=== PATIENT | male | born 1960 | race Caucasian/White ===

== ENCOUNTER 2021-03-16 07:10 | Inpatient (IN) | payer OTHER, SELFPAY ==
[2021-03-16] VITALS (13 sets, daily range): BP systolic 105–147; BP diastolic 58–76; PULSE 96–140; RESP 18–22; TEMP 36.5–39.6; O2SAT 90–97; BMI 30.2
--- NOTE | ~2021-03-16 | CT_ITS ---
EXAMINATION: CT CHEST WITHOUT CONTRAST CLINICAL INFORMATION: Follow-up pneumonia COMPARISON: Previous chest x-ray from yesterday TECHNIQUE: Multidetector volumetric CT imaging of the chest was done. Axial MIP volume rendering provided. Sagittal and coronal reformatted images were obtained. This CT examination was performed using dose optimization techniques as appropriate, variously including the following: *Automated exposure control *Adjustment of mA and/or kV according to patient size (this includes techniques or standardized protocols for targeted exams where dose is matched to indication/reason for exam; i.e. extremities or head) *Use of iterative reconstruction technique DLP: 312 mGy-cm FINDINGS: QUAHOGGER: LUNGS: There is right-sided multilobar peribronchial groundglass attenuation, bronchial wall thickening, and small nodular opacities. Largest nodular opacity measures 5 mm in the right lower lobe axial image 40 series 4. There is mild interlobular septal thickening seen particularly in the right lower lobe. Chest CT appearance is suggestive of bronchopneumonia. This may be improved compared to yesterday's chest x-ray. There is a small 3 mm left upper lobe nodule axial image 190 series 5. There are small clustered peribronchial nodules in the lingula for example axial image 262 series 5 and in the left lower lobe for example axial image 385 series 5 probably representing airways disease. There is a 2 mm calcified left lower lobe nodule axial image 328 series 5. No endobronchial or endotracheal lesion is seen. MEDIASTINUM: The mediastinum is normal. PLEURA: There is no pleural effusion. No pleural mass or thickening. AXILLA: There is shotty axillary lymphadenopathy. UPPER ABDOMEN: There is a small posterior gastric diverticulum. The gallbladder has been removed. OSSEOUS STRUCTURES: There are degenerative changes of the spine. CT/CT chest wo con IMPRESSION: Multilobar right-sided pneumonia. This may be improved compared to yesterday's chest x-ray.
--- NOTE | ~2021-03-16 | XR_ITS ---
EXAMINATION: XR CHEST CLINICAL INFORMATION: Right-sided pneumonia COMPARISON: None TECHNIQUE: 2 views of the chest were obtained. FINDINGS: There are scattered airspace opacities throughout the right hemithorax, greatest involvement anterior upper lobe and right middle lobe. There is no associated effusion. The left lung is clear. The vascularity is normal. Heart is within limits of normal size. The hilar and mediastinal contours and bony structures are unremarkable. XR/XR chest 2V IMPRESSION: Multifocal pneumonia and right with involvement greatest anterior upper lobe and right middle lobe. No effusion. Left lung clear.
[2021-03-16] MEDS: Acetaminophen 325 MG TABLET 650 MG PO ×2 (07:47→19:58)
--- NOTE | 2021-03-16 07:50 | PC.NURSE ---
PT ALERT AND ORIENTED, SKIN FLUSHED AND WARM TO TOUCH, RESPIRATIONS EVEN AND UNLABORED, LS DIMINISHED AND RIGHT LOWER COURSE, DRY COUGH, SINUS TACH ON THE MONITOR AT 120'S.
--- NOTE | 2021-03-16 07:55 | ED_ITS ---
HPI - Fever General Chief Complaint: Fever Stated Complaint: SOB,FEVER Time Seen by Provider: 03/16/21 07:54 Source: patient Mode of arrival: EMS Limitations: no limitations History of Present Illness HPI Narrative: patient woke up short of breath and too weak. patient has been vaccinated for COVID. patient did not know he had fever MD elicited complaint: fever and weakness Onset (ago): hour(s) Exacerbating factors: nothing Relieving factors: nothing Associated symptoms: chills and headache Related Data Home Medications Medication Instructions Recorded Confirmed amitriptyline 25 mg tablet 25 mg PO BEDTIME 03/16/21 03/16/21 doxepin 100 mg capsule 200 mg PO BEDTIME 03/16/21 03/16/21 doxepin 50 mg capsule 50 mg PO BEDTIME 03/16/21 03/16/21 hyoscyamine sulfate 0.125 mg 1 tab SUBLINGUAL DAILY PRN 03/16/21 03/16/21 sublingual tablet levothyroxine 75 mcg tablet 75 mcg PO QAM 03/16/21 03/16/21 morphine 15 mg tablet,extended 15 mg PO TID 03/16/21 03/16/21 release omeprazole 20 mg capsule,delayed 20 mg PO BID 03/16/21 03/16/21 release oxycodone-acetaminophen 5 mg-325 1 tab PO BID 03/16/21 03/16/21 mg tablet prazosin 1 mg capsule 3 cap PO BEDTIME 03/16/21 03/16/21 pregabalin 150 mg capsule 300 mg PO BEDTIME 03/16/21 03/16/21 sumatriptan succinate 50 mg tablet 1 tab PO Q2H PRN 03/16/21 03/16/21 Allergies Allergy/AdvReac Type Severity Reaction Status Date / Time celecoxib [From Celebrex] Allergy Headache Verified 03/16/21 07:27 sulfamethoxazole Allergy Headache Verified 03/16/21 07:27 [From Bactrim] trimethoprim [From Bactrim] Allergy Headache Verified 03/16/21 07:27 Review of Systems Constitutional: Constitutional: Reports no additional constitutional complaints Eyes: Eyes: Reports no additional eye complaints ENT: Denies dizziness Cardiovascular: Cardiovascular: Reports no additional cardiovascular complaints Respiratory: Respiratory: Reports as per HPI Gastrointestinal: Gastrointestinal: Reports no additional gastrointestinal complaints Musculoskeletal: Musculoskeletal: Reports no additional musculoskeletal complaints Integumentary/Breasts: Skin/Breast: Denies rash Neurologic: Reports system reviewed and no additional complaints, except as documented, Denies dizziness and Denies Sensory deficit (Neuro) Psychiatric: Psychiatric: Denies anxiety PMF Past Medical History Medical History Back pain Social History Social History Alcohol intake: former Patient Tobacco Use Status: Former Tobacco user Use of substances other than those prescribed or required for medical reasons: No Advance Directives: Yes Advance Directives Information Provided: Yes Advance Directives on File: No Physical Exam Vital Signs: Vital Signs: Last Vital Signs Temp 100.0 F 03/16/21 09:43 Pulse 107 H 03/16/21 10:42 Resp 21 H 03/16/21 10:42 BP 109/63 03/16/21 11:02 Pulse Ox 95 03/16/21 10:42 Body Mass Index 30.2 Const: Other: coughing slightly short of breath Nutritional Appearance: average body habitus Orientation/consciousness: oriented to person and patient oriented x3 Limitations: no limitations HENMT: Head: Yes normal to inspection Ears: external ears normal General nose exam: Normal external nose present Mouth: Normal oral and palatal mucosa present and oropharynx normal Throat: Yes posterior oropharynx normal Eyes: General: appearance normal, both eyes and all related structures Neck: Other: supple Neck: Yes normal visual inspection Chest: Chest palpation & inspection: normal inspection of the chest Resp: Other: Rales on the right Cardio: Other: tachycardia Jugular venous distension: no JVD Rate: regular rate Rhythm: regular rhythm Heart sounds: S1 normal heart sound present and S2 normal heart sound present GI: Inspection: Yes normal to inspection Palpation (GI): Soft to palpation, nontender and No hepatosplenomegaly present Auscultation: normal bowel sounds : General: Yes no CVA tenderness Back/Spine/Pelvis: Back: no CVA tenderness Skin: General skin exam: no rashes or lesions noted Neuro: General: oriented to person and patient oriented x3 Cranial nerves: Yes CN's II-XII intact bilaterally Motor exam (neuro): 5/5 motor strength present throughout Sensory Exam: No Sensory deficit (Neuro) Extrem: General: Yes normal to inspection Psych: Appearance: grossly normal Course Reevaluation(s) Reevaluation #1: patient with fever to 104, tachycardia and multilobar pneumonia on right will admit Time: 10:02 MDM - Fever Lab Data Result diagrams: 03/16/21 07:59 03/16/21 07:59 Labs: Lab Results 03/16/21 03/16/21 03/16/21 Range/Units 07:59 07:59 07:59 WBC 6.8 (4.8-10.8) X10*3/uL RBC 4.53 L (4.60-5.80) X10*6/uL Hgb 13.6 L (14.0-18.0) g/dl Hct 39.9 L (42-52) % MCV 88.1 (80-98) fL MCH 30.0 (27.0-33.0) pg MCHC 34.1 (31.0-36.0) g/dl RDW 12.9 (11.0-16.0) % Plt Count 184 (160-400) X10*3/uL MPV 9.1 L (9.4-12.4) fL Immature Gran % (Auto) 0.4 (0.0-0.4) % Neut % (Auto) 87.3 H (45-73) % Lymph % (Auto) 7.2 L (20-40) % [place] % (Auto) 3.5 (2-11) % Eos % (Auto) 1.3 (0-4) % Baso % (Auto) 0.3 (0-2) % Lymph # (Auto) 0.5 L (1.2-4.9) X10*3/uL [place] # (Auto) 0.2 (0.1-1.2) X10*3/uL Eos # (Auto) 0.1 (0.0-0.4) X10*3/uL Baso # (Auto) 0.0 (0.0-0.2) X10*3/uL Abs Immat Gran (auto) 0.03 (0.00-0.03) X10*3/uL Absolute Neuts (auto) 5.9 (2.0-8.3) X10*3/uL Absolute Nucleated RBC 0.000 (0.0-0.012) X10*3/uL Nucleated RBC % (auto) 0.0 (0.0-0.2) /100WBC PT 11.0 (9.9-13.0) SEC INR 1.0 (0.9-1.1) APTT 27.9 (24.1-38.0) SEC Sodium 139 (135-145) mmol/L Potassium 3.9 (3.3-5.1) mmol/L Chloride 109 H (96-108) mmol/L Carbon Dioxide 21 L (22-29) mmol/L Anion Gap 13 (12-20) BUN 11 (9-16) mg/dL Creatinine 1.20 (0.5-1.4) mg/dL Estim Creat Clear Calc 75.5 Estimated GFR > 60 Random Glucose 120 H (60-115) mg/dL Lactic Acid (0.5-2.0) mmol/L Calcium 7.8 L (8.4-10.2) mg/dL Total Bilirubin 1.2 H (0.0-1.0) mg/dL Direct Bilirubin 0.4 (0.0-0.5) mg/dL AST 36 (5-37) U/L ALT 33 (0-40) U/L Alkaline Phosphatase 70 (39-117) U/L Total Protein 6.0 L (6.5-8.0) g/dL Albumin 3.7 (3.5-5.0) g/dL Coronavirus (PCR) (Negative) Influenza Type A (PCR) (Negative) Influenza Type B (PCR) (Negative) RSV RNA Qual (PCR) (Negative) 03/16/21 03/16/21 Range/Units 08:00 08:09 WBC (4.8-10.8) X10*3/uL RBC (4.60-5.80) X10*6/uL Hgb (14.0-18.0) g/dl Hct (42-52) % MCV (80-98) fL MCH (27.0-33.0) pg MCHC (31.0-36.0) g/dl RDW (11.0-16.0) % Plt Count (160-400) X10*3/uL MPV (9.4-12.4) fL Immature Gran % (Auto) (0.0-0.4) % Neut % (Auto) (45-73) % Lymph % (Auto) (20-40) % [place] % (Auto) (2-11) % Eos % (Auto) (0-4) % Baso % (Auto) (0-2) % Lymph # (Auto) (1.2-4.9) X10*3/uL [place] # (Auto) (0.1-1.2) X10*3/uL Eos # (Auto) (0.0-0.4) X10*3/uL Baso # (Auto) (0.0-0.2) X10*3/uL Abs Immat Gran (auto) (0.00-0.03) X10*3/uL Absolute Neuts (auto) (2.0-8.3) X10*3/uL Absolute Nucleated RBC (0.0-0.012) X10*3/uL Nucleated RBC % (auto) (0.0-0.2) /100WBC PT (9.9-13.0) SEC INR (0.9-1.1) APTT (24.1-38.0) SEC Sodium (135-145) mmol/L Potassium (3.3-5.1) mmol/L Chloride (96-108) mmol/L Carbon Dioxide (22-29) mmol/L Anion Gap (12-20) BUN (9-16) mg/dL Creatinine (0.5-1.4) mg/dL Estim Creat Clear Calc Estimated GFR Random Glucose (60-115) mg/dL Lactic Acid 2.1 H* (0.5-2.0) mmol/L Calcium (8.4-10.2) mg/dL Total Bilirubin (0.0-1.0) mg/dL Direct Bilirubin (0.0-0.5) mg/dL AST (5-37) U/L ALT (0-40) U/L Alkaline Phosphatase (39-117) U/L Total Protein (6.5-8.0) g/dL Albumin (3.5-5.0) g/dL Coronavirus (PCR) NEGATIVE (Negative) Influenza Type A (PCR) NEGATIVE (Negative) Influenza Type B (PCR) NEGATIVE (Negative) RSV RNA Qual (PCR) NEGATIVE (Negative) Imaging Data Chest x-ray: Radiologist's impression: IMPRESSION: Multifocal pneumonia and right with involvement greatest anterior upper lobe and right middle lobe. No effusion. Left lung clear. Discharge Plan Discharge Clinical Impression: Pneumonia Qualifiers: Pneumonia type: due to unspecified organism Laterality: right Lung location: unspecified part of lung Qualified Code(s): J18.9 - Pneumonia, unspecified organism Patient Disposition: Admitted As Inpatient
[2021-03-16 08:05] LABS: MANUAL DIFF FLAG NO
[2021-03-16 08:06] LABS: Basophils Percent Auto 0.3 % (0-2); Eosinophils Absolute Auto 0.1 X10*3/uL (0.0-0.4); Eosinophils Percent Auto 1.3 % (0-4); Hematocrit 39.9 % (42-52); Hemoglobin 13.6 g/dl (14.0-18.0); Imm Gran Abs Auto 0.03 X10*3/uL (0.00-0.03); Imm Gran Pct Auto 0.4 % (0.0-0.4); Lymphocytes Absolute Auto 0.5 X10*3/uL (1.2-4.9); Lymphocytes Percent Auto 7.2 % (20-40); Mean Corpuscular HGB Conc 34.1 g/dl (31.0-36.0); Mean Corpuscular Volume 88.1 fL (80-98); Mean Platelet Volume 9.1 fL (9.4-12.4); Monocytes Absolute Auto 0.2 X10*3/uL (0.1-1.2); Monocytes Percent Auto 3.5 % (2-11); Neutrophils Absolute Auto 5.9 X10*3/uL (2.0-8.3); Neutrophils Percent Auto 87.3 % (45-73); Platelet Count 184 X10*3/uL (160-400); Red Blood Count 4.53 X10*6/uL (4.60-5.80); Red Cell Distribution Width 12.9 % (11.0-16.0); White Blood Count 6.8 X10*3/uL (4.8-10.8)
[2021-03-16 08:14] LABS: Partial Thromboplastin Time 27.9 SEC (24.1-38.0)
[2021-03-16 08:31] LABS: Alanine Aminotransferase 33 U/L (0-40); Albumin Level 3.7 g/dL (3.5-5.0); Alkaline Phosphatase 70 U/L (39-117); Anion Gap 13 (12-20); Aspartate Amino Transferase 36 U/L (5-37); Bilirubin Direct 0.4 mg/dL (0.0-0.5); Bilirubin Total 1.2 mg/dL (0.0-1.0); Blood Urea Nitrogen 11 mg/dL (9-16); Calcium 7.8 mg/dL (8.4-10.2); Carbon Dioxide 21 mmol/L (22-29); Chloride 109 mmol/L (96-108); Creatinine Clr Calc Pharmacy 75.5; Estimated Glomerular Filt Rate > 60; Glucose Random 120 mg/dL (60-115); Potassium 3.9 mmol/L (3.3-5.1); Sodium 139 mmol/L (135-145)
[2021-03-16 08:40] LABS: Lactic Acid 2.1 mmol/L (0.5-2.0)
[2021-03-16 08:55] LABS: Influenza A PCR NEGATIVE (Negative); Influenza B PCR NEGATIVE (Negative); Resp Syncy Virus RNA Qual PCR NEGATIVE (Negative); SARS COV2 PCR INHOUSE NEGATIVE (Negative)
--- NOTE | 2021-03-16 09:46 | PC.NURSE ---
VS remain stable. Temp trending down. Sepsis IVF remain infusing at this time.
[2021-03-16 10:04] LABS: Reflex Lactate? Lactic Acid Added
[2021-03-16] MEDS: cefTRIAXone sodium 1 GM in 0.9 % Sodium Chloride 50 ML IV (10:25)
[2021-03-16] MEDS: Azithromycin 500 MG in 0.9 % Sodium Chloride 250 ML 125 MG IV (11:00)
[2021-03-16 11:15] LABS: ~Lactic Acid-LAB USE ONLY 2.1 mmol/L (0.5-2.0)
[2021-03-16 12:48] LABS: Reflex Lactate? 2 Y
[2021-03-16 14:08] LABS: ~Lactic Acid-LAB USE ONLY 1.9 mmol/L (0.5-2.0)
--- NOTE | 2021-03-16 14:36 | P.HPHOSP_ITS ---
History of Present Illness Date of Service: 03/16/21 Chief Complaint: Cough, chills This is a 60-year-old male with a past medical history of chronic pain - back and multiple joints, hypothyroidism who presented to the hospital with complaints of sudden onset shortness of breath, chills, coughing when he woke up this morning. Patients is bedside, who reports that the patient had severe rigors and was intermittently confused during these spells. The patient endorses that he went to sleep fine and has felt in his usual state of health the last few days. He denies any known sick contacts. He reports that he has been vaccinated for COVID 19. Upon arrival to the ED, patient was noted to have the following vitals: BP 105/69, RR 22, HR 134, Temp 103.2. His CBC did not show an elevated WBC count, but there was a L shift. CXR showed Right sided multifocal pneumonia. He had blood cultures drawn, was given sepsis fluid bolus and admission was requested. Review of Systems Review of Systems: General - fevers and chills HEENT -denies blurred vision, denies headache, denies sore throat Cardiovascular - denies chest pain or palpitations, denies edema Respiratory - shortness of breath, cough Gastrointestinal - denies abdominal pain, nausea, vomiting, diarrhea - denies flank pain, denies dysuria, denies frequency or urgency Musculoskeletal - denies back pain, denies hip pain, denies knee pain, denies shoulder pain Neurological - denies any focal weakness or numbness Skin, denies any bruising or redness Psychiatric - denies any suicidal ideation, hallucinations, homicidal ideation Endocrinology - denies intolerance to hot / cold temperatures [facility] Medical History (Updated 03/16/21 @ 14:59 by Stiven Grissom MD) Arthritis Back pain GERD (gastroesophageal reflux disease) Hypothyroidism Migraine Pertinent family history: CAD Surgical History (Updated 03/16/21 @ 14:57 by Stiven Grissom MD) History of cholecystectomy Social History Alcohol intake: former Patient Tobacco Use Status: Former Tobacco user Use of substances other than those prescribed or required for medical reasons: No Advance Directives: Yes Advance Directives Information Provided: Yes Advance Directives on File: No Meds Allergies Allergy/AdvReac Type Severity Reaction Status Date / Time celecoxib [From Celebrex] Allergy Headache Verified 03/16/21 07:27 sulfamethoxazole Allergy Headache Verified 03/16/21 07:27 [From Bactrim] trimethoprim [From Bactrim] Allergy Headache Verified 03/16/21 07:27 Active Medications: Current Medications Generic Name Dose Route Start Last Admin Trade Name Freq PRN Reason Stop Dose Admin Acetaminophen 650 mg 03/16/21 14:23 Acetaminophen 325 Mg Tablet PO Q6H PRN Fever Enoxaparin Sodium 40 mg 03/16/21 14:30 Enoxaparin Sodium 40 Mg/0.4 Ml Syringe SUBCUT Q24H [facility] Ceftriaxone Sodium 1 gm/ 50 mls @ 100 mls/hr 03/17/21 10:00 Sodium Chloride IV Q24H KEVIN Azithromycin 500 mg/ Sodium 250 mls @ 125 mls/hr 03/17/21 10:00 Chloride IV Q24H KEVIN Morphine Sulfate 4 mg 03/16/21 14:28 Morphine Sulfate 4 Mg/Ml Cartridge IVPUSH Q4H PRN Pain, Severe (Pain Scale 7-10) Pharmacy Consult 1 each 03/16/21 10:14 Consult Rx Perform Med Rec MISCELLANE ONCE PRN Consult order Sodium Chloride 3 ml 03/16/21 16:00 0.9 % Sodium Chloride Flush 3 Ml [facility] Home Medications Medication Instructions Recorded Confirmed Last Taken Type amitriptyline 25 mg tablet 25 mg PO BEDTIME 03/16/21 03/16/21 03/15/21 History doxepin 100 mg capsule 200 mg PO BEDTIME 03/16/21 03/16/21 03/15/21 History doxepin 50 mg capsule 50 mg PO BEDTIME 03/16/21 03/16/21 03/15/21 History hyoscyamine sulfate 0.125 mg 1 tab SUBLINGUAL DAILY PRN 03/16/21 03/16/21 Unknown History sublingual tablet levothyroxine 75 mcg tablet 75 mcg PO QAM 03/16/21 03/16/21 03/15/21 History morphine 15 mg tablet,extended 15 mg PO TID 03/16/21 03/16/21 03/15/21 History release omeprazole 20 mg capsule,delayed 20 mg PO BID 03/16/21 03/16/21 03/15/21 History release oxycodone-acetaminophen 5 mg-325 1 tab PO BID 03/16/21 03/16/21 03/15/21 History mg tablet prazosin 1 mg capsule 3 cap PO BEDTIME 03/16/21 03/16/21 03/15/21 History pregabalin 150 mg capsule 300 mg PO BEDTIME 03/16/21 03/16/21 03/15/21 History sumatriptan succinate 50 mg tablet 1 tab PO Q2H PRN 03/16/21 03/16/21 Unknown History Physical Exam Vital Signs and Narrative: Vital Signs: Last Vital Signs Temp 99.4 F 03/16/21 13:32 Pulse 105 H 03/16/21 13:32 Resp 22 H 03/16/21 13:32 BP 115/73 03/16/21 13:32 Pulse Ox 97 03/16/21 13:32 Body Mass Index 30.2 Results Labs CBC and Chem 7: 03/16/21 07:59 03/16/21 07:59 Labs: Laboratory Results - last 24 hr 03/16/21 03/16/21 03/16/21 07:59 07:59 07:59 MCV 88.1 MCH 30.0 MCHC 34.1 RDW 12.9 Plt Count 184 MPV 9.1 L Immature Gran % (Auto) 0.4 Neut % (Auto) 87.3 H Lymph % (Auto) 7.2 L [place] % (Auto) 3.5 Eos % (Auto) 1.3 Baso % (Auto) 0.3 Lymph # (Auto) 0.5 L [place] # (Auto) 0.2 Eos # (Auto) 0.1 Baso # (Auto) 0.0 Abs Immat Gran (auto) 0.03 Absolute Neuts (auto) 5.9 Absolute Nucleated RBC 0.000 Nucleated RBC % (auto) 0.0 PT 11.0 INR 1.0 APTT 27.9 Anion Gap 13 Estim Creat Clear Calc 75.5 Estimated GFR > 60 Random Glucose 120 H Lactic Acid Lactic Acid Fup @ 2Hr Lactic Acid Fup @ 4Hr Calcium 7.8 L Total Bilirubin 1.2 H Direct Bilirubin 0.4 AST 36 ALT 33 Alkaline Phosphatase 70 Total Protein 6.0 L Albumin 3.7 Coronavirus (PCR) Influenza Type A (PCR) Influenza Type B (PCR) RSV RNA Qual (PCR) 03/16/21 03/16/21 03/16/21 08:00 08:09 10:46 MCV MCH MCHC RDW Plt Count MPV Immature Gran % (Auto) Neut % (Auto) Lymph % (Auto) [place] % (Auto) Eos % (Auto) Baso % (Auto) Lymph # (Auto) [place] # (Auto) Eos # (Auto) Baso # (Auto) Abs Immat Gran (auto) Absolute Neuts (auto) Absolute Nucleated RBC Nucleated RBC % (auto) PT INR APTT Anion Gap Estim Creat Clear Calc Estimated GFR Random Glucose Lactic Acid 2.1 H* Lactic Acid Fup @ 2Hr 2.1 H* Lactic Acid Fup @ 4Hr Calcium Total Bilirubin Direct Bilirubin AST ALT Alkaline Phosphatase Total Protein Albumin Coronavirus (PCR) NEGATIVE Influenza Type A (PCR) NEGATIVE Influenza Type B (PCR) NEGATIVE RSV RNA Qual (PCR) NEGATIVE 03/16/21 13:36 MCV MCH MCHC RDW Plt Count MPV Immature Gran % (Auto) Neut % (Auto) Lymph % (Auto) [place] % (Auto) Eos % (Auto) Baso % (Auto) Lymph # (Auto) [place] # (Auto) Eos # (Auto) Baso # (Auto) Abs Immat Gran (auto) Absolute Neuts (auto) Absolute Nucleated RBC Nucleated RBC % (auto) PT INR APTT Anion Gap Estim Creat Clear Calc Estimated GFR Random Glucose Lactic Acid Lactic Acid Fup @ 2Hr Lactic Acid Fup @ 4Hr 1.9 Calcium Total Bilirubin Direct Bilirubin AST ALT Alkaline Phosphatase Total Protein Albumin Coronavirus (PCR) Influenza Type A (PCR) Influenza Type B (PCR) RSV RNA Qual (PCR) Imaging Radiologist's Impressions: Impressions Chest X-Ray 03/16/21 08:01 IMPRESSION: Multifocal pneumonia and right with involvement greatest anterior upper lobe and right middle lobe. No effusion. Left lung clear. Assessment and Plan (1) Pneumonia: Qualifiers: Laterality: right Lung location: unspecified part of lung Pneumonia type: due to unspecified organism Qualified Code(s): J18.9 - Pneumonia, unspecified organism Status: Acute This is a 60 yo M with a PMH of chronic pain, hypothyroidism, GERD who presents to the hospital with sudden onset SOB, cough, fevers and chills. His CXR shows multifocal pneumonia on the R-side. He is admitted for further work up. 1. Severe sepsis Meets sepsis criteria with tachycardia, tachypnea and fevers; severe features in clude elevated lactate. Due to pneumonia 2. Pneumonia suspected aspiration given sudden onset of symptoms will cover with IV rocephin / zithromax will check for atypicals COVID 19 less likely as PCR negative and also he has been vaccinated 3. Migranes sumatriptan now 4. Chronic Pain continue his baseline meds 5. GERD PPI 6. Hypothyroidism synthroid Full Code DVT pptx, Lovenox Quality Stroke Does the patient have a stroke diagnosis?: No VTE Prior VTE?: No VTE Risk Level:: Medical - moderate - high VTE Device Contraindication: Treatment Not Indicated VTE Drug Contraindication: N/A - Med Ordered
[2021-03-16] MEDS: Morphine Sulfate 4 MG/ML CARTRIDGE IVPUSH (14:50)
--- NOTE | 2021-03-16 14:53 | PC.NURSE ---
Addendum entered by Polly Wagner RN 03/16/21 14:57: Pt nauseated from morphine. MD notified. No prn options for nausea at this time. Original Note: Pt reporting back pain which is chronic as well as a headache. Given 4mg IV morphine.
[2021-03-16 15:20] LABS: Procalcitonin 1.65 ng/mL
[2021-03-16] MEDS: SUMAtriptan succinate 50 MG TABLET PO (15:32)
--- NOTE | 2021-03-16 16:21 | MHC.CM.PN ---
CM met with admitted pt. and . Bed assignment pending. Pt lives with , uses no DME and has no services. Pt states he has insurance through his . does will bring in pt insurance card. 's insurance card does not list pt as beneficiary. Pt requests a HCP to be completed. HCP reviewed, completed and signed. HCP/ Landy Fletcher ([phone]). D/C plan is home without services. Transportation provided by family. CM to follow for d/c needs.
[2021-03-16] MEDS: Levothyroxine Sodium 75 MCG TABLET PO (17:15)
[2021-03-16] MEDS: 0.9 % Sodium Chloride Flush 3 ML SYRINGE IVFLUSH ×2 (17:17→19:59)
[2021-03-16] MEDS: Omeprazole 20 MG CAPSULE.DR PO (17:43)
[2021-03-16] MEDS: Enoxaparin Sodium 40 MG/0.4 ML SYRINGE SUBCUT (17:44)
[2021-03-16] MEDS: Morphine Sulfate ER 15 MG TABLET.ER PO (19:58)
[2021-03-16] MEDS: Prazosin HCL 1 MG CAPSULE 3 MG PO (19:58)
[2021-03-16] MEDS: Amitriptyline HCl 25 MG TABLET PO (19:58)
[2021-03-16] MEDS: Doxepin HCl 25 MG CAPSULE 50 MG PO (19:59)
[2021-03-16] MEDS: Doxepin HCl 25 MG CAPSULE 200 MG PO (19:59)
[2021-03-16] MEDS: Pregabalin 150 MG CAPSULE 300 MG PO (19:59)
[2021-03-17 03:40] VITALS: BP 130/70; PULSE 94; RESP 18; TEMP 36.2; O2SAT 96
[2021-03-17] MEDS: Levothyroxine Sodium 75 MCG TABLET PO (06:02)
[2021-03-17] MEDS: Omeprazole 20 MG CAPSULE.DR PO ×2 (06:02→17:24)
[2021-03-17 06:55] LABS: Hematocrit 37.6 % (42-52); Hemoglobin 12.3 g/dl (14.0-18.0); Mean Corpuscular HGB Conc 32.7 g/dl (31.0-36.0); Mean Corpuscular Hemoglobin 29.6 pg (27.0-33.0); Mean Corpuscular Volume 90.6 fL (80-98); Mean Platelet Volume 9.8 fL (9.4-12.4); Platelet Count 184 X10*3/uL (160-400); Red Blood Count 4.15 X10*6/uL (4.60-5.80); Red Cell Distribution Width 13.2 % (11.0-16.0); White Blood Count 16.4 X10*3/uL (4.8-10.8)
[2021-03-17 07:03] VITALS: BP 136/71; PULSE 93; RESP 20; TEMP 36.1; O2SAT 98
[2021-03-17 07:29] LABS: Anion Gap 10 (12-20); Blood Urea Nitrogen 10 mg/dL (9-16); Calcium 7.6 mg/dL (8.4-10.2); Carbon Dioxide 24 mmol/L (22-29); Chloride 110 mmol/L (96-108); Creatinine Clr Calc Pharmacy 87.1; Estimated Glomerular Filt Rate > 60; Glucose Random 85 mg/dL (60-115); Potassium 4.1 mmol/L (3.3-5.1); Sodium 140 mmol/L (135-145)
[2021-03-17] MEDS: 0.9 % Sodium Chloride Flush 3 ML SYRINGE IVFLUSH ×3 (08:41→21:51)
[2021-03-17] MEDS: Morphine Sulfate ER 15 MG TABLET.ER PO ×3 (08:41→21:50)
[2021-03-17 09:45] LABS: Alanine Aminotransferase 30 U/L (0-40); Albumin Level 3.3 g/dL (3.5-5.0); Alkaline Phosphatase 63 U/L (39-117); Aspartate Amino Transferase 35 U/L (5-37); Bilirubin Direct 0.4 mg/dL (0.0-0.5); Bilirubin Total 2.6 mg/dL (0.0-1.0); Total Protein 5.4 g/dL (6.5-8.0)
[2021-03-17 10:07] LABS: Procalcitonin 9.68 ng/mL
--- NOTE | 2021-03-17 10:26 | HO.PM.IMPN ---
Subjective Subjective Date of Service: 03/17/21 Interval History: seen and examined d/w re: dysphagia, denies any dysphgia, reports some intermittent GERD symptoms reports feeling tired today breathing a bit easier no fevers or chills Review of Systems General - no fevers or chills Cardiovascular - no chest pain Respiratory -+CONNELL Abdominal- no abdominal pain, nausea, vomiting, diarrhea Physical Exam Vital Signs: Vital Signs: Last Vital Signs Temp 97 F 03/17/21 07:03 Pulse 93 03/17/21 07:03 Resp 20 03/17/21 07:03 BP 136/71 03/17/21 07:03 Pulse Ox 98 03/17/21 07:03 Body Mass Index 30.2 Const: Other: General - no acute distress, appears comfortable Cardiovascular - regular rate and rhythm, S1-S2 Lungs - dim sounds on the right Abdomen - soft, nontender, no rebound or guarding Extremities - no edema bilaterally Neuro - awake and alert, no focal deficits Objective Data Current Medications Generic Name Dose Route Start Last Admin Trade Name Vikasq PRN Reason Stop Dose Admin Acetaminophen 650 mg 03/16/21 14:23 03/16/21 19:58 Acetaminophen 325 Mg Tablet PO 650 mg Q6H PRN Administration Fever Amitriptyline HCl 25 mg 03/16/21 21:00 03/16/21 19:58 Amitriptyline Hcl 25 Mg Tablet PO 25 mg BEDTIME KEVIN Administration Doxepin HCl 50 mg 03/16/21 21:00 03/16/21 19:59 Doxepin Hcl 25 Mg Capsule PO 50 mg BEDTIME KEVIN Administration Doxepin HCl 200 mg 03/16/21 21:00 03/16/21 19:59 Doxepin Hcl 25 Mg Capsule PO 200 mg BEDTIME KEVIN Administration Enoxaparin Sodium 40 mg 03/16/21 18:00 03/16/21 17:44 Enoxaparin Sodium 40 Mg/0.4 Ml Syringe SUBCUT 40 mg Q24H KEVIN Administration Ceftriaxone Sodium 1 gm/ 50 mls @ 100 mls/hr 03/17/21 10:00 Sodium Chloride IV Q24H KEVIN Azithromycin 500 mg/ Sodium 250 mls @ 125 mls/hr 03/17/21 11:00 Chloride IV Q24H KEVIN Levothyroxine Sodium 75 mcg 03/16/21 14:45 03/17/21 06:02 Levothyroxine Sodium 75 Mcg Tablet PO 75 mcg DAILY@0630 KEVIN Administration Morphine Sulfate 4 mg 03/16/21 14:28 03/16/21 14:50 Morphine Sulfate 4 Mg/Ml Cartridge IVPUSH 4 mg Q4H PRN Administration Pain, Severe (Pain Scale 7-10) Morphine Sulfate 15 mg 03/16/21 15:00 03/17/21 08:41 Morphine Sulfate Er 15 Mg Tablet.Er PO 15 mg TID KEVIN Administration Omeprazole 20 mg 03/16/21 16:30 03/17/21 06:02 Omeprazole 20 Mg Capsule.Dr PO 20 mg BID@0630,1630 KEVIN Administration Ondansetron HCl 4 mg 03/16/21 14:58 03/16/21 15:13 Ondansetron Hcl 4 Mg/2 Ml Vial IVPUSH 4 mg Q8H PRN Administration Nausea and Vomiting Pharmacy Consult 1 each 03/16/21 10:14 Consult Rx Perform Med Rec MISCELLANE ONCE PRN Consult order Prazosin HCl 3 mg 03/16/21 21:00 03/16/21 19:58 Prazosin Hcl 1 Mg Capsule PO 3 mg BEDTIME KEVIN Administration Protocol Pregabalin 300 mg 03/16/21 21:00 03/16/21 19:59 Pregabalin 150 Mg Capsule PO 300 mg BEDTIME KEVIN Administration Sodium Chloride 3 ml 03/16/21 16:00 03/17/21 08:41 0.9 % Sodium Chloride Flush 3 Ml Syringe IVFLUSH 3 ml QSHIFT KEVIN Administration Labs CBC & Chem 7: 03/17/21 06:02 03/17/21 06:02 Labs: Laboratory Results - last 24 hr 03/16/21 03/16/21 03/16/21 07:59 10:46 13:36 MCV MCH MCHC RDW Plt Count MPV Absolute Nucleated RBC Nucleated RBC % (auto) Anion Gap Estim Creat Clear Calc Estimated GFR Random Glucose Lactic Acid Fup @ 2Hr 2.1 H* Lactic Acid Fup @ 4Hr 1.9 Calcium Total Bilirubin Direct Bilirubin AST ALT Alkaline Phosphatase Total Protein Albumin Procalcitonin 1.65 03/17/21 03/17/21 03/17/21 06:02 06:02 06:02 MCV 90.6 MCH 29.6 MCHC 32.7 RDW 13.2 Plt Count 184 MPV 9.8 Absolute Nucleated RBC 0.000 Nucleated RBC % (auto) 0.0 Anion Gap 10 L Estim Creat Clear Calc 87.1 Estimated GFR > 60 Random Glucose 85 Lactic Acid Fup @ 2Hr Lactic Acid Fup @ 4Hr Calcium 7.6 L Total Bilirubin 2.6 H Direct Bilirubin 0.4 AST 35 ALT 30 Alkaline Phosphatase 63 Total Protein 5.4 L Albumin 3.3 L Procalcitonin 9.68 Microbiology Microbiology Results: Microbiology 03/16/21 08:09 Blood Culture - Preliminary Blood - Venous No growth after 24 hours. 03/16/21 07:59 Blood Culture - Preliminary Blood - Venous No growth after 24 hours. Assessment and Plan (1) Pneumonia: Status: Acute Assessment and Plan: This is a 60 yo M with a PMH of chronic pain, hypothyroidism, GERD who presents to the hospital with sudden onset SOB, cough, fevers and chills. His CXR shows multifocal pneumonia on the R-side. He is admitted for further work up. 1. Severe sepsis leukocytosis worsening overall, sepsis improving 2. Pneumonia leukocytosis + procalcitonin on the rise will check CT chest to evaluate extent of finding will order sputum does not appear toxic -- continue rocephin/zithromax for now, may need to escalate antibiotics 3. Migranes sumatriptan now 4. Chronic Pain continue his baseline meds 5. GERD PPI 6. Hypothyroidism synthroid Full Code DVT pptx, Lovenox Quality Stroke Does the patient have a stroke diagnosis?: No VTE Prior VTE?: No VTE Risk Level:: Medical - moderate - high VTE Device Contraindication: Treatment Not Indicated VTE Drug Contraindication: N/A - Med Ordered
[2021-03-17] MEDS: cefTRIAXone sodium 1 GM in 0.9 % Sodium Chloride 50 ML IV (10:33)
[2021-03-17 10:52] VITALS: BP 120/61; PULSE 100; RESP 18; TEMP 36.6; O2SAT 98
[2021-03-17] MEDS: Azithromycin 500 MG in 0.9 % Sodium Chloride 250 ML 125 MG IV (11:10)
[2021-03-17 15:00] VITALS: BP 124/59; PULSE 94; RESP 18; TEMP 36.9; O2SAT 95
[2021-03-17] MEDS: Enoxaparin Sodium 40 MG/0.4 ML SYRINGE SUBCUT (17:25)
[2021-03-17 19:30] VITALS: BP 124/78; PULSE 96; RESP 18; TEMP 36.6; O2SAT 97
[2021-03-17 21:49] VITALS: BP 124/78; PULSE 96
[2021-03-17] MEDS: Pregabalin 150 MG CAPSULE 300 MG PO (21:49)
[2021-03-17] MEDS: Prazosin HCL 1 MG CAPSULE 3 MG PO (21:49)
[2021-03-17] MEDS: Doxepin HCl 25 MG CAPSULE 50 MG PO (21:50)
[2021-03-17] MEDS: Amitriptyline HCl 25 MG TABLET PO (21:50)
[2021-03-17] MEDS: oxyCODONE HCl Immed Release 5 MG TABLET PO (21:50)
[2021-03-17] MEDS: Doxepin HCl 25 MG CAPSULE 200 MG PO (21:51)
[2021-03-18] VITALS (7 sets, daily range): BP systolic 121–159; BP diastolic 62–94; PULSE 84–103; RESP 18; TEMP 36–37.2; O2SAT 95–97
--- NOTE | 2021-03-18 05:36 | PC.NURSE ---
Pt down to CT scan for chest CT at 19:45 on 03/17. Pt transported via w/c.
[2021-03-18] MEDS: Levothyroxine Sodium 75 MCG TABLET PO (05:50)
[2021-03-18] MEDS: Omeprazole 20 MG CAPSULE.DR PO ×2 (05:50→17:22)
[2021-03-18 06:25] LABS: Hematocrit 36.2 % (42-52); Hemoglobin 12.2 g/dl (14.0-18.0); Mean Corpuscular HGB Conc 33.7 g/dl (31.0-36.0); Mean Corpuscular Hemoglobin 30.8 pg (27.0-33.0); Mean Corpuscular Volume 91.4 fL (80-98); Mean Platelet Volume 9.3 fL (9.4-12.4); Platelet Count 176 X10*3/uL (160-400); Red Blood Count 3.96 X10*6/uL (4.60-5.80); Red Cell Distribution Width 13.4 % (11.0-16.0); White Blood Count 11.9 X10*3/uL (4.8-10.8)
[2021-03-18 06:40] LABS: Prothrombin Time 11.5 SEC (9.9-13.0)
[2021-03-18 06:50] LABS: Alanine Aminotransferase 24 U/L (0-40); Albumin Level 3.2 g/dL (3.5-5.0); Alkaline Phosphatase 57 U/L (39-117); Anion Gap 12 (12-20); Aspartate Amino Transferase 22 U/L (5-37); Bilirubin Direct 0.4 mg/dL (0.0-0.5); Bilirubin Total 1.3 mg/dL (0.0-1.0); Blood Urea Nitrogen 12 mg/dL (9-16); Calcium 7.9 mg/dL (8.4-10.2); Carbon Dioxide 20 mmol/L (22-29); Chloride 110 mmol/L (96-108); Creatinine Clr Calc Pharmacy 80.9; Estimated Glomerular Filt Rate > 60; Glucose Random 98 mg/dL (60-115); Potassium 4.1 mmol/L (3.3-5.1); Sodium 138 mmol/L (135-145); Total Protein 5.6 g/dL (6.5-8.0)
[2021-03-18 08:19] LABS: Procalcitonin 6.32 ng/mL
[2021-03-18] MEDS: cefTRIAXone sodium 1 GM in 0.9 % Sodium Chloride 50 ML IV (09:14)
[2021-03-18] MEDS: 0.9 % Sodium Chloride Flush 3 ML SYRINGE IVFLUSH ×3 (09:14→21:15)
[2021-03-18] MEDS: oxyCODONE HCl Immed Release 5 MG TABLET PO ×2 (09:14→21:09)
[2021-03-18] MEDS: Morphine Sulfate ER 30 MG TABLET.ER PO (09:14)
[2021-03-18] MEDS: Azithromycin 500 MG in 0.9 % Sodium Chloride 250 ML 125 MG IV (09:51)
--- NOTE | 2021-03-18 12:28 | HO.PM.IMPN ---
Subjective Subjective Date of Service: 03/18/21 Interval History: seen and examined feels better today, less cough and sob; less R sided pleurtic cp Review of Systems General - no fevers or chills Cardiovascular - no chest pain Respiratory -+CONNELL Abdominal- no abdominal pain, nausea, vomiting, diarrhea Physical Exam Vital Signs: Vital Signs: Last Vital Signs Temp 96.8 F 03/18/21 11:02 Pulse 93 03/18/21 11:02 Resp 18 03/18/21 11:02 BP 146/76 H 03/18/21 11:02 Pulse Ox 97 03/18/21 11:02 Body Mass Index 30.2 Const: Other: General - no acute distress, appears comfortable Cardiovascular - regular rate and rhythm, S1-S2 Lungs - air entry on right improved, left lung clear Abdomen - soft, nontender, no rebound or guarding Extremities - no edema bilaterally Neuro - awake and alert, no focal deficits Objective Data Current Medications Generic Name Dose Route Start Last Admin Trade Name Freq PRN Reason Stop Dose Admin Acetaminophen 650 mg 03/16/21 14:23 03/16/21 19:58 Acetaminophen 325 Mg Tablet PO 650 mg Q6H PRN Administration Fever Amitriptyline HCl 25 mg 03/16/21 21:00 03/17/21 21:50 Amitriptyline Hcl 25 Mg Tablet PO 25 mg BEDTIME KEVIN Administration Doxepin HCl 50 mg 03/16/21 21:00 03/17/21 21:50 Doxepin Hcl 25 Mg Capsule PO 50 mg BEDTIME KEVIN Administration Doxepin HCl 200 mg 03/16/21 21:00 03/17/21 21:51 Doxepin Hcl 25 Mg Capsule PO 200 mg BEDTIME KEVIN Administration Enoxaparin Sodium 40 mg 03/16/21 18:00 03/17/21 17:25 Enoxaparin Sodium 40 Mg/0.4 Ml Syringe SUBCUT 40 mg Q24H KEVIN Administration Ceftriaxone Sodium 1 gm/ 50 mls @ 100 mls/hr 03/17/21 10:00 03/18/21 09:46 Sodium Chloride IV Infused Q24H KEVIN Infusion Azithromycin 500 mg/ Sodium 250 mls @ 125 mls/hr 03/17/21 11:00 03/18/21 12:08 Chloride IV Infused Q24H KEVIN Infusion Levothyroxine Sodium 75 mcg 03/16/21 14:45 03/18/21 05:50 Levothyroxine Sodium 75 Mcg Tablet PO 75 mcg DAILY@0630 KEVIN Administration Morphine Sulfate 4 mg 03/16/21 14:28 03/16/21 14:50 Morphine Sulfate 4 Mg/Ml Cartridge IVPUSH 4 mg Q4H PRN Administration Pain, Severe (Pain Scale 7-10) Morphine Sulfate 15 mg 03/17/21 21:00 03/17/21 21:50 Morphine Sulfate Er 15 Mg Tablet.Er PO 15 mg BEDTIME KEVIN Administration Morphine Sulfate 30 mg 03/18/21 09:00 03/18/21 09:14 Morphine Sulfate Er 30 Mg Tablet.Er PO 30 mg DAILY KEVIN Administration Omeprazole 20 mg 03/16/21 16:30 03/18/21 05:50 Omeprazole 20 Mg Capsule. PO 20 mg BID@0630,1630 KEVIN Administration Ondansetron HCl 4 mg 03/16/21 14:58 03/16/21 15:13 Ondansetron Hcl 4 Mg/2 Ml Vial IVPUSH 4 mg Q8H PRN Administration Nausea and Vomiting Oxycodone HCl 5 mg 03/17/21 21:00 03/18/21 09:14 Oxycodone Hcl Immed Release 5 Mg Tablet PO 5 mg BID KEVIN Administration Pharmacy Consult 1 each 03/16/21 10:14 Consult Rx Perform Med Rec MISCELLANE ONCE PRN Consult order Prazosin HCl 3 mg 03/16/21 21:00 03/17/21 21:49 Prazosin Hcl 1 Mg Capsule PO 3 mg BEDTIME KEVIN Administration Protocol Pregabalin 300 mg 03/16/21 21:00 03/17/21 21:49 Pregabalin 150 Mg Capsule PO 300 mg BEDTIME KEVIN Administration Sodium Chloride 3 ml 03/16/21 16:00 03/18/21 09:14 0.9 % Sodium Chloride Flush 3 Ml Syringe IVFLUSH 3 ml QSHIFT KEVIN Administration Labs CBC & Chem 7: 03/18/21 06:06 03/18/21 06:06 Labs: Laboratory Results - last 24 hr 03/18/21 03/18/21 03/18/21 06:06 06:06 06:06 MCV 91.4 MCH 30.8 MCHC 33.7 RDW 13.4 Plt Count 176 MPV 9.3 L Absolute Nucleated RBC 0.000 Nucleated RBC % (auto) 0.0 PT 11.5 INR 1.0 Anion Gap 12 Estim Creat Clear Calc 80.9 Estimated GFR > 60 Random Glucose 98 Calcium 7.9 L Total Bilirubin 1.3 H Direct Bilirubin 0.4 AST 22 ALT 24 Alkaline Phosphatase 57 Total Protein 5.6 L Albumin 3.2 L Procalcitonin 03/18/21 06:06 MCV MCH MCHC RDW Plt Count MPV Absolute Nucleated RBC Nucleated RBC % (auto) PT INR Anion Gap Estim Creat Clear Calc Estimated GFR Random Glucose Calcium Total Bilirubin Direct Bilirubin AST ALT Alkaline Phosphatase Total Protein Albumin Procalcitonin 6.32 Microbiology Microbiology Results: Microbiology 03/16/21 08:09 Blood Culture - Preliminary Blood - Venous No growth after 48 hours. 03/16/21 07:59 Blood Culture - Preliminary Blood - Venous No growth after 48 hours. Assessment and Plan (1) Pneumonia: Status: Acute Assessment and Plan: This is a 60 yo M with a PMH of chronic pain, hypothyroidism, GERD who presents to the hospital with sudden onset SOB, cough, fevers and chills. His CXR shows multifocal pneumonia on the R-side. He is admitted for further work up. 1. Severe sepsis resolving due to pneumonia 2. Pneumonia rocephin/doxy day #3 clinically improved, blood work also improved CT chest reviewed -- has a few smells (less than 5mm) nodules -- repeat imaging as oupatient after completion of Rx; 3. Migranes sumatriptan now 4. Chronic Pain continue his baseline meds 5. GERD PPI 6. Hypothyroidism synthroid Full Code DVT pptx, Lovenox Quality Stroke Does the patient have a stroke diagnosis?: No VTE Prior VTE?: No VTE Risk Level:: Medical - moderate - high VTE Device Contraindication: Treatment Not Indicated VTE Drug Contraindication: N/A - Med Ordered
[2021-03-18] MEDS: Enoxaparin Sodium 40 MG/0.4 ML SYRINGE SUBCUT (17:22)
[2021-03-18] MEDS: Morphine Sulfate ER 15 MG TABLET.ER PO ×2 (17:45→21:10)
[2021-03-18] MEDS: Doxepin HCl 25 MG CAPSULE 200 MG PO (21:10)
[2021-03-18] MEDS: Doxepin HCl 25 MG CAPSULE 50 MG PO (21:10)
[2021-03-18] MEDS: Pregabalin 150 MG CAPSULE 300 MG PO (21:11)
[2021-03-18] MEDS: Prazosin HCL 1 MG CAPSULE 3 MG PO (21:12)
[2021-03-18] MEDS: Amitriptyline HCl 25 MG TABLET PO (21:12)
[2021-03-19] VITALS: BP 113/57; PULSE 93; RESP 18; TEMP 36.9; O2SAT 95
[2021-03-19 03:58] VITALS: BP 138/66; PULSE 86; RESP 18; TEMP 37.1; O2SAT 96
[2021-03-19] MEDS: Levothyroxine Sodium 75 MCG TABLET PO (06:03)
[2021-03-19] MEDS: Omeprazole 20 MG CAPSULE.DR PO (06:03)
[2021-03-19 07:27] VITALS: BP 128/75; PULSE 78; RESP 17; TEMP 36.6; O2SAT 97
[2021-03-19] MEDS: oxyCODONE HCl Immed Release 5 MG TABLET PO (08:14)
[2021-03-19] MEDS: Morphine Sulfate ER 15 MG TABLET.ER PO (08:14)
[2021-03-19] MEDS: 0.9 % Sodium Chloride Flush 3 ML SYRINGE IVFLUSH (08:15)
[2021-03-19] MEDS: cefTRIAXone sodium 1 GM in 0.9 % Sodium Chloride 50 ML IV (11:05)
[2021-03-19 11:16] VITALS: BP 115/73; PULSE 80; RESP 18; TEMP 36.4; O2SAT 96
--- NOTE | 2021-03-19 11:39 | PM.DS ---
DS: Providers Provider Date of Service: 03/19/21 <Marysol Patricio NP - Last Filed: 03/19/21 11:52> Date of admission: 03/16/21 14:22 <Marysol Patricio NP - Last Filed: 03/19/21 11:52> Date of discharge: 03/19/21 <Marysol Patricio NP - Last Filed: 03/19/21 11:52> Primary care physician: Unknown Physician <Marysol Patricio NP - Last Filed: 03/19/21 11:52> Admitting clinician: Stiven Grissom <Marysol Patricio NP - Last Filed: 03/19/21 11:52> Attending physician on admission: Stiven Grissom <Marysol Patricio NP - Last Filed: 03/19/21 11:52> Attending physician on discharge: Dinesh Ingram <Marysol Patricio NP - Last Filed: 03/19/21 11:52> Discharging clinician: Marysol Patricio <Marysol Patricio NP - Last Filed: 03/19/21 11:52> DS: Diagnosis Discharge Diagnosis (1) Pneumonia: Status: Acute <Marysol Patricio NP - Last Filed: 03/19/21 11:52> DS: Summary Hospital Course Hospital Course: HP as per admitting provider This is a 60-year-old male with a past medical history of chronic pain - back and multiple joints, hypothyroidism who presented to the hospital with complaints of sudden onset shortness of breath, chills, coughing when he woke up this morning. Patients is bedside, who reports that the patient had severe rigors and was intermittently confused during these spells. The patient endorses that he went to sleep fine and has felt in his usual state of health the last few days. He denies any known sick contacts. He reports that he has been vaccinated for COVID 19 . Community-acquired pneumonia. Patient initially presented with complaints of shortness of breath chills and cough. He had not presented hypoxic and did not require high amounts of therapeutic oxygen. He was treated with IV ceftriaxone and azithromycin. His symptoms have improved significantly and he will be discharged on Ceftin and azithromycin for 7 days. He can follow-up with his primary care provider for follow-up treatment if needed. <Marysol Patricio NP - Last Filed: 03/19/21 11:52> Time Spent with Patient Time attestation: Total time spent providing and/or coordinating discharge services: <Marysol Patricio NP - Last Filed: 03/19/21 11:52> Discharge coordination time: Greater than 30 minutes <Marysol Patricio NP - Last Filed: 03/19/21 11:52> Quality: Stroke Does the patient have a stroke diagnosis?: No <Marysol Patricio NP - Last Filed: 03/19/21 11:52> Physical Exam Vital Signs: Vital Signs: Last Vital Signs Temp 97.6 F 03/19/21 11:16 Pulse 80 03/19/21 11:16 Resp 18 03/19/21 11:16 BP 115/73 03/19/21 11:16 Pulse Ox 96 03/19/21 11:16 Body Mass Index 30.2 <Marysol Patricio NP - Last Filed: 03/19/21 11:52> Appearing in no acute distress head is normocephalic atraumatic eyes pupils are PERRLA sclera is anicteric mouth throat mucous membranes are intact and moist neck is supple no lymphadenopathy, no JVD noted lung sounds are clear to auscultation heart regular rate rhythm, clear S1, S2 positive bowel sounds, abdomen is soft, nontender neuro patient is alert x3, no focal deficits <Marysol Patricio NP - Last Filed: 03/19/21 11:52> DS: Data Data Completed and Pending Labs on day of discharge: Preliminary micro results at discharge 03/16/21 08:09 Blood Culture - Preliminary Blood - Venous No growth after 48 hours. 03/16/21 07:59 Blood Culture - Preliminary Blood - Venous No growth after 48 hours. <Marysol Patricio NP - Last Filed: 03/19/21 11:52> Discharge Plan Discharge Anticipated Discharge Date/Time: 03/19/21 11:35 <Marysol Patricio NP - Last Filed: 03/19/21 11:52> Patient Disposition: Home, Self-Care <Marysol Patricio NP - Last Filed: 03/19/21 11:52> Discharge Diagnosis: Community-acquired pneumonia <Marysol Patricio NP - Last Filed: 03/19/21 11:52> Community-acquired pneumonia <Dinesh Ingram MD - Last Filed: 04/23/21 21:42> Referrals: Physician,Unknown [Primary Care Provider] - 1 Week <Marysol Patricio NP - Last Filed: 03/19/21 11:52> Discharge Medications: New azithromycin 500 mg tablet 500 mg PO DAILY 7 Days Qty: 7 RF: 0 cefuroxime axetil 500 mg tablet 500 mg PO BID Qty: 14 RF: 0 Continued doxepin 50 mg capsule 50 mg PO BEDTIME RF: 0 prazosin 1 mg capsule 3 cap PO BEDTIME RF: 0 sumatriptan succinate 50 mg tablet 1 tab PO Q2H PRN (Reason: migraine) RF: 0 levothyroxine 75 mcg tablet 75 mcg PO QAM RF: 0 oxycodone-acetaminophen 5-325 mg tablet 1 tab PO BID RF: 0 amitriptyline 25 mg tablet 25 mg PO BEDTIME RF: 0 doxepin 100 mg capsule 200 mg PO BEDTIME RF: 0 omeprazole 20 mg capsule,delayed release(DR/EC) 20 mg PO BID RF: 0 morphine 15 mg tablet extended release 15 mg PO TID RF: 0 pregabalin 150 mg capsule 300 mg PO BEDTIME RF: 0 hyoscyamine sulfate 0.125 mg tablet, sublingual 1 tab sublingual DAILY PRN (Reason: CHOKING) RF: 0 <Marysol Patricio NP - Last Filed: 03/19/21 11:52> Discharge Orders: Discharge Order (Routine); Ordered 03/19/21 Ordered By: Marysol Patricio <Marysol Patricio NP - Last Filed: 03/19/21 11:52> Diet: advance to usual diet <Marysol Patricio NP - Last Filed: 03/19/21 11:52> advance to usual diet <Dinesh Ingram MD - Last Filed: 04/23/21 21:42> Activity on Discharge: As tolerated <Marysol Patricio NP - Last Filed: 03/19/21 11:52> As tolerated <Dinesh Ingram MD - Last Filed: 04/23/21 21:42> Stand Alone Forms: Patient Portal Discharge page, Work/School Release <Marysol Patricio NP - Last Filed: 03/19/21 11:52> Care Plan Goals: resolution of pneumonia symptoms <Marysol Patricio NP - Last Filed: 03/19/21 11:52> Health Concerns: community-acquired pneumonia <Marysol Patricio NP - Last Filed: 03/19/21 11:52> Plan of Treatment: Take antibiotic medication as prescribed Follow-up with her primary care provider <Marysol Patricio NP - Last Filed: 03/19/21 11:52> Assessment: see discharge summary I saw patient and discussued findings, discharge plan and disposition with midlevel and I agree with the above <Marysol Patricio NP - Last Filed: 03/19/21 11:52> Discharge Date/Time: 03/19/21 17:41 <Marysol Patricio NP - Last Filed: 03/19/21 11:52>
--- NOTE | 2021-03-19 11:42 | MHC.CM.PN ---
PT CLEARED TO DC HOME TODAY WITH NO SERVICES. FAMILY TO TRANSPORT
[2021-03-19] MEDS: Azithromycin 500 MG in 0.9 % Sodium Chloride 250 ML 125 MG IV (11:56)
[2021-03-19 15:13] VITALS: BP 150/85; PULSE 81; RESP 20; TEMP 36; O2SAT 97
[2021-03-21 00:51] LABS: Strep Pneumo Ag urine Not Detected (Not Detected)
[2021-03-23 17:00] LABS: Legionella Ag Urine Not Detected (Not Detected)
== END 2021-03-19 17:41 | disposition home or self-care (01) | DRG 871 ==
LOC: HO.ED 10:05 → HO.EDOVER 15:39 → HO.IMC 16:22
PROVIDERS: Admitting Provider Family Medicine; Emergency Provider Emergency Medicine; Visit Provider Internal Medicine
DX: A41.9 Sepsis, unspecified organism (principal); J18.9 Pneumonia, unspecified organism; R65.20 Severe sepsis without septic shock; K21.9 Gastro-esophageal reflux disease without esophagitis; G43.909 Migraine, unspecified, not intractable, without status migrainosus; G89.29 Other chronic pain; Z87.891 Personal history of nicotine dependence; Z20.822 Contact with and (suspected) exposure to COVID-19; E03.9 Hypothyroidism, unspecified; Z88.2 Allergy status to sulfonamides; Z88.6 Allergy status to analgesic agent; Z79.890 Hormone replacement therapy; Z79.891 Long term (current) use of opiate analgesic; Z79.899 Other long term (current) drug therapy
CPT/HCPCS: 0241U; 36415; 71046; 71250; 80048; 80076; 83605; 84145; 85025; 85027; 85610; 85730; 87040; 87449; 87899; 99285; J0456; J0696; J1650; J2270; J2405

== ENCOUNTER 2022-03-28 09:36 | Outpatient (REF) | payer OTHER, SELFPAY ==
--- NOTE | ~2022-03-28 | CT_ITS ---
EXAMINATION: CT CHEST WITHOUT CONTRAST CLINICAL INFORMATION: Pulmonary nodules. COMPARISON: Previous chest x-ray and chest CT March 2021. TECHNIQUE: Multidetector volumetric CT imaging of the chest was done. Axial MIP volume rendering provided. Sagittal and coronal reformatted images were obtained. This CT examination was performed using dose optimization techniques as appropriate, variously including the following: *Automated exposure control *Adjustment of mA and/or kV according to patient size (this includes techniques or standardized protocols for targeted exams where dose is matched to indication/reason for exam; i.e. extremities or head) *Use of iterative reconstruction technique DLP: 168 mGy-cm FINDINGS: LUNGS: There are several small clustered peribronchial nodules seen in both lateral lower lobes for example axial image 371 series 7 on the right and axial image 380 series 7 on the left. Largest pulmonary nodules measure 1 to 2 mm. This is similar to March 2021 exam. There are multiple separate calcified and noncalcified pulmonary nodules. Comparison with previous exam is difficult, particularly in the right lung. Largest pulmonary nodules are a 3 mm right lower lobe nodule axial image 294 series 9 not definitely identified on prior exam and a 3 mm peripheral or subpleural left lower lobe nodule adjacent to the fissure axial image 237 series 9 unchanged from prior exam. Diffuse right-sided multilobar peribronchial ground-glass attenuation, bronchial wall thickening and larger nodular opacities seen in the right lung March 2021 exam have resolved. MEDIASTINUM: The mediastinum is normal. PLEURA: There is no pleural effusion. No pleural mass or thickening. AXILLA: There are small bilateral axillary lymph nodes. No enlarged lymph nodes or chest wall mass is seen. UPPER ABDOMEN: The gallbladder has been removed. There is a small gastric diverticulum arising from the posterior proximal stomach. OSSEOUS STRUCTURES: Unremarkable. CT/CT chest wo con IMPRESSION: Diffuse right-sided multilobar peribronchial ground-glass attenuation, bronchial wall thickening and peribronchial nodular opacities seen on March 2021 exam have resolved. Small clustered peribronchial nodules suggestive of airways disease in the bilateral lateral lower lobes appear unchanged. There are numerous bilateral separate small calcified and noncalcified nodules, largest measuring 3 mm. Comparison with March 2021 exam is difficult, particularly in the right lung. Fleischner guidelines were followed.
== END 2022-03-28 09:37 | disposition home or self-care (01) ==
LOC: HO.CT 09:36
PROVIDERS: PCP Internal Medicine; Visit Provider Internal Medicine
DX: R91.8 Other nonspecific abnormal finding of lung field (principal)
CPT/HCPCS: 71250